=== PATIENT | male | born 1995 | race Hispanic/Latino ===

== ENCOUNTER 2021-12-24 12:01 | Observation (INO) | payer BC ==
[~2021-12-24] VITALS: Ht 165.1 cm; Wt 109.3 kg
[2021-12-24 12:33] LABS: BASOPHILS % (AUTO) 0.3 % (0.0-5.0); EOSINOPHILS % (AUTO) 0.1 % (0.0-8.0); HEMATOCRIT 48.7 % (42-54); LYMPHOCYTES % (AUTO) 5.8 % (21.0-51.0); MEAN CORPUSCULAR HEMOGLOBIN 26.7 pg (27.0-33.0); MEAN CORPUSCULAR HGB CONC 33.3 g/dL (32.0-36.0); MEAN CORPUSCULAR VOLUME 80.4 fL (79-99); MONOCYTES % (AUTO) 2.6 % (3.0-13.0); NEUTROPHILS % (AUTO) 90.6 % (40.0-77.0); PLATELET COUNT (AUTO) 401 K/uL (130-400); RED BLOOD CELL COUNT(AUTO) 6.06 MIL/uL (4.50-6.20); RED CELL DISTRIBUTION WIDTH 13.5 % (11.0-15.5); WHITE BLOOD COUNT (AUTO) 20.6 K/uL (4.8-10.8)
[2021-12-24] MEDS ORDERED: 0.9%NACL 1000ML 1,000 ML IV ONE (13:00)
[2021-12-24] MEDS ORDERED: MORPHINE 4 MG SYG IVP ONE (13:00)
[2021-12-24] MEDS ORDERED: ONDANSETRON 4MG INJ IVP ONE (13:00)
[2021-12-24] MEDS ORDERED: KETOROLAC 15MG/ML VIAL (15MG/ML) IV ONE (13:00)
[2021-12-24] MEDS: ZOSYN 3.375GM +NS 50ML IV SCH ×3 (13:10→23:36)
[2021-12-24 13:43] LABS: BILIRUBIN,TOTAL 0.3 mg/dL (0.2-1.0); CREATININE 0.9 mg/dL (0.5-1.5); POTASSIUM 3.9 mmol/L (3.5-5.1); TOTAL PROTEIN, SERUM 8.9 g/dL (6.0-8.3)
[2021-12-24] MEDS ORDERED: IOHEXOL-350 75 ML VIAL IV ONE (14:16)
[2021-12-24] MEDS: D5W-1/2 NS/20MEQ KCL 1,000 ML IV SCH (18:22)
[2021-12-24] MEDS: ONDANSETRON 4MG INJ IVP PRN (18:25)
[2021-12-24] MEDS: MORPHINE 2 MG SYG IVP PRN ×2 (18:25→23:42)
[2021-12-24 19:00] LABS: APPEARANCE,URINE CLEAR (CLEAR); BILIRUBIN,URINE NEGATIVE (NEGATIVE); COLOR,URINE YELLOW (YELLOW); GLUCOSE, URINE (UA) NEGATIVE (NEGATIVE); KETONES,URINE NEGATIVE (NEGATIVE); LEUKOCYTE ESTERASE ,URINE NEGATIVE (NEGATIVE); NITRATE,URINE NEGATIVE (NEGATIVE); OCCULT BLOOD,URINE SMALL (NEGATIVE); PROTEIN,URINE NEGATIVE (NEGATIVE); UROBILINOGEN,URINE 0.2 mg/dL (0.2-1.0)
[2021-12-24 20:08] LABS: BACTERIA,URINE Moderate /HPF (None Seen)
[2021-12-24 20:11] LABS: SQUAMOUS EPITHELIAL CELL,UR Rare /HPF (0-2)
[2021-12-24 20:12] LABS: CALCIUM OXALATE CRYSTALS,UR Rare /LPF (None Seen)
[2021-12-24 20:30] VITALS: BP 154/84
[2021-12-25] VITALS (28 sets, daily range): BP systolic 113–153; BP diastolic 53–96
[2021-12-25] MEDS: D5W-1/2 NS/20MEQ KCL 1,000 ML IV SCH ×2 (01:24→12:30)
[2021-12-25] MEDS: ONDANSETRON 4MG INJ IVP PRN ×2 (07:48→12:12)
[2021-12-25] MEDS: ZOSYN 3.375GM +NS 50ML IV SCH ×3 (07:48→16:19)
[2021-12-25] MEDS: MORPHINE 2 MG SYG IVP PRN (07:49)
[2021-12-25] MEDS ORDERED: SUCCINYLCHOLINE CHLORIDE 20 MG/ML 10 ML VIAL ONE (10:03)
[2021-12-25] MEDS ORDERED: ROCURONIUM 10MG/1ML SYR 10 MG/ML ML ONE (10:04)
[2021-12-25] MEDS ORDERED: MIDAZOLAM HCL 1 MG/ML 2ML VIAL ONE (10:04)
[2021-12-25] MEDS ORDERED: ONDANSETRON 4MG INJ ONE (10:04)
[2021-12-25] MEDS ORDERED: PROPOFOL 10 MG/ML 20ML VIAL IV ONE (10:04)
[2021-12-25] MEDS ORDERED: FENTANYL CITRATE PF 50 MCG/1 ML 5ML AMP IV ONE (10:05)
[2021-12-25] MEDS ORDERED: PHENYLEPHRINE HCL 10 MG/ML 1ML VIAL IV ONE (10:24)
[2021-12-25] MEDS ORDERED: BUPIVACAINE/PF 0.25% 30ML VIAL IJ ONE ×2 (10:34→10:35)
[2021-12-25] MEDS ORDERED: GLYCOPYRROLATE 1 MG/5 ML SYRINGE ONE (11:20)
[2021-12-25] MEDS ORDERED: NEOSTIGMINE 5MG/5ML SYR IV ONE (11:20)
[2021-12-25] MEDS ORDERED: FENTANYL CITRATE PF 50 MCG/1 ML 2ML VIAL ONE (11:22)
[2021-12-25] MEDS ORDERED: ACET-2079 PO (11:37)
[2021-12-25] MEDS ORDERED: CIPR500S5 PO (11:46)
[2021-12-25] MEDS ORDERED: NALOXONE HCL 0.4 MG/1 ML ML ONE (12:01)
[2021-12-25] MEDS ORDERED: KETOROLAC 30MG VIAL (30MG/ML) ONE (12:07)
== END 2021-12-25 23:00 | disposition home or self-care (01) ==
LOC: EDH 12:01 → EDHIP 16:13 → 3CH 20:30
PROVIDERS: ADMIT Specialist; ATTEND Specialist
DX: K81.0 Acute cholecystitis (principal); Z20.822 Contact with and (suspected) exposure to COVID-19; K76.0 Fatty (change of) liver, not elsewhere classified; K82.1 Hydrops of gallbladder; E66.9 Obesity, unspecified; Z79.899 Other long term (current) drug therapy
CPT/HCPCS: 36415; 47562; 74177; 76705; 80053; 81001; 83690; 85025; 87088; 87635; 96361; 96365; 96366 ×2; 96375; 96376 ×2; 99285; A4215; A4600; A4649 ×3; A6206; C1769 ×4; C9803; G0378 ×30; J0330; J1885 ×2; J2250; J2270; J2310; J2370; J2405 ×5; J2543 ×5; J2704; J2710; J3010 ×2; J3480 ×2; J3490 ×3; J7030 ×2; Q9967